=== PATIENT | female | born 1950 | race Caucasian/White ===

== ENCOUNTER 2023-09-11 18:23 | Emergency (ER) | payer OTHER ==
[2023-09-11 18:40] VITALS: BP 124/65; PULSE 68; RESP 16; TEMP 98.9; BMI 26.2
[2023-09-11] MEDS ORDERED: diazePAM 2 MG TABLET PO ONE (19:42)
[2023-09-11] MEDS ORDERED: ACETAMINOPHEN 1000 MG/100 ML BAG IVPB ONE (19:42)
[2023-09-11 20:28] LABS: HEMATOCRIT 38.7 % (32.4-45.2); HEMOGLOBIN 12.7 G/dL (10.7-15.3); MCHC 32.8 g/dl (32.0-36.0); MEAN CELL VOLUME 94.4 fl (80-96); MEAN PLT VOLUME 9.4 fl (7.5-11.1); RDW 14.1 % (11.6-15.6); WHITE BLOOD COUNT 12.8 10^3/uL (4.0-10.8)
[2023-09-11 20:42] LABS: ALBUMIN 4.2 g/dl (3.4-5.0); BILIRUBIN,TOTAL 0.2 mg/dl (0.2-1); CALCIUM 9.8 mg/dl (8.5-10.1); CREATININE 0.9 mg/dl (0.6-1.3); POTASSIUM 4.3 mmol/L (3.5-5.1); TOT PROT 6.9 g/dl (6.4-8.2)
[2023-09-11] MEDS ORDERED: LIDOCAINE 5% TOPICAL PATCH TP ONE (20:45)
[2023-09-11] MEDS ORDERED: LIDOCAINE 5% TOPICAL PATCH ONE (20:47)
[2023-09-11] MEDS ORDERED: predniSONE 20 MG TABLET (UD) PO ONE (22:27)
[2023-09-11] MEDS ORDERED: predniSONE 20 MG TABLET (UD) ONE (22:29)
== END 2023-09-11 22:37 | disposition home or self-care (01) ==
LOC: FER 18:23
PROC: 3E033NZ Introduction of Analgesics, Hypnotics, Sedatives into Peripheral Vein, Percutaneous Approach (ICD-10-PCS; principal; 2023-09-11)
DX: M54.2 Cervicalgia (principal); J02.9 Acute pharyngitis, unspecified; R51.9 Headache, unspecified
CPT/HCPCS: 36415; 70490-TC; 80053; 85027; 86140; 99284-25